=== PATIENT | female | born 1950 | race American Indian/Alaskan Native ===

== ENCOUNTER 2017-03-06 06:45 | Emergency (ER) | payer BC, MEDICARE, OTHER ==
[2017-03-06 07:21] VITALS: TEMP 98.5
[2017-03-06] MEDS ORDERED: Lidocaine 1% Inj (20ml) ONE (07:30)
--- NOTE | 2017-03-06 07:48 | C.PDOC ---
History Of Present Illness 66 y/o female presents to ED with complaints of " feeling something crawling in right ear". Patient states there is a bug in her ear. Patient denies fever, chills, headache, or any other complaints at this time. Time Seen by Provider: 03/06/17 07:21 Chief Complaint (Nursing): ENT Problem History Per: Patient History/Exam Limitations: None Onset/Duration Of Symptoms: Hrs Current Symptoms Are (Timing): Still Present Severity: Mild Past Medical History Reviewed: Historical Data, Nursing Documentation, Vital Signs Vital Signs: Last Vital Signs Temp 98.5 F 03/06/17 07:08 Pulse 56 L 03/06/17 08:54 Resp 17 03/06/17 08:54 BP 117/74 03/06/17 08:54 Pulse Ox 99 03/06/17 08:54 - Medical History PMH: No Chronic Diseases Surgical History: No Surg Hx Denies: Pacemaker - [facility] Procedures DX ULTRASOUND-DIGESTIVE (10/17/11) ESOPHAGOGASTRODUODENOSCOPY [EGD] W/CLOSED BIOPSY (10/17/11) OTH LYSIS-PERITONEAL ADHES (05/04/02) OTH REMOVE BOTH OVARIES/TUBES (05/04/02) TOTAL ABD HYSTERECTOMY (05/04/02) Family History: States: No Known Family Hx - Social History Hx Alcohol Use: No Hx Substance Use: No Review Of Systems Except As Marked, All Systems Reviewed And Found Negative. Constitutional: Negative for: Fever, Chills ENT: Positive for: Ear Pain. Negative for: Ear Discharge Cardiovascular: Negative for: Chest Pain Respiratory: Negative for: Shortness of Breath Skin: Negative for: Rash Neurological: Negative for: Headache Physical Exam - Physical Exam Appears: Non-toxic, No Acute Distress Skin: Warm, Dry Head: Atraumatic, Normacephalic Eye(s): bilateral: Normal Inspection Ear(s): Right: TM Obscured By Wax (small amounts of cerumen, no FB), Bilateral: Normal Oral Mucosa: Moist Neck: Normal ROM, Supple Chest: Symmetrical Cardiovascular: Rhythm Regular Respiratory: Normal Breath Sounds Neurological/Psych: Oriented x3 Gait: Steady ED Course And Treatment O2 Sat by Pulse Oximetry: 96 (RA) Pulse Ox Interpretation: Normal Progress Note: ear flushed with NSS multiple times. no FB noted Reassessment Condition: Improved Medical Decision Making Medical Decision Making: Plan: * Lidocaine added to right ear * Re-evaluate for possible foreign body * Ear flushed, no f.b noted, patient will be discharged home Disposition Counseled Patient/Family Regarding: Diagnosis, Need For Followup - Disposition Referrals: Marcello Hansen MD [Staff Provider] - Disposition: HOME/ ROUTINE Disposition Time: 08:30 Condition: STABLE Additional Instructions: Follow up with ear doctor for further evaluation Instructions: Triethanolamine Polypeptide Oleate (Into the ear), Cerumen Impaction (ED) Forms: [employer] (Latvian) - POA Present On Arrival: None - Clinical Impression Clinical Impression: Ear pain, right - PA / [employer] / Resident Statement MD/DO has reviewed & agrees with the documentation as recorded. - Scribe Statement The provider has reviewed the documentation as recorded by the Karleneibcorinne Barnes All medical record entries made by the Soni were at my direction and personally dictated by me. I have reviewed the chart and agree that the record accurately reflects my personal performance of the history, physical exam, medical decision making, and the department course for this patient. I have also personally directed, reviewed, and agree with the discharge instructions and disposition.
[2017-03-06] MEDS ORDERED: Lidocaine 1% Inj (20ml) INFIL ONE (08:44)
[2017-03-06 08:54] VITALS: BP 117/74; PULSE 56; RESP 17
[2017-03-06 15:44] VITALS: O2SAT 96
== END 2017-03-06 08:54 | disposition home or self-care (01) ==
LOC: C.ER 06:45
DX: H92.01 Otalgia, right ear (principal)

== ENCOUNTER 2018-09-08 14:11 | Emergency (ER) | payer MEDICARE ==
[2018-09-08] MEDS ORDERED: Sodium Chloride 0.9% 1,000 ML IV ONE (17:51)
--- NOTE | 2018-09-08 18:01 | C.PDOC ---
History Of Present Illness 67 y/o female with no pertinent PMHx presents to the ED for evaluation of generalized weakness, intermittent for the past few months. Patient states she has been seen by her doctor, who could not find any etiology for her symptoms. O therwise pt denies any headache, dizziness, recent illness, fever, chills, visual changes, neck pain, chest pain, SOB, palpitation, nausea, vomiting, abd pain, UTI sx. Ambulatory, not in any apparent distress,. <Caterina Calix - Last Filed: 09/08/18 18:58> History Per: Patient History/Exam Limitations: no limitations Onset/Duration Of Symptoms: Intermittent Episodes Current Symptoms Are (Timing): Still Present Seizure Or Post-ictal Symptoms: None Fall Associated With With Symptoms: No <Caterina Calix - Last Filed: 09/08/18 18:58> <Jonatan Tariq - Last Filed: 09/09/18 02:01> Time Seen by Provider: 09/08/18 17:43 Chief Complaint (Nursing): Weakness/Neurological Deficit Past Medical History Reviewed: Historical Data, Nursing Documentation, Vital Signs Vital Signs: Last Vital Signs Temp 98.7 F 09/08/18 14:17 Pulse 73 09/08/18 14:17 Resp 18 09/08/18 14:17 BP 124/76 09/08/18 14:17 Pulse Ox 99 09/08/18 14:17 - Medical History PMH: Arthritis Denies: Asthma, Seizures Surgical History: Denies: Pacemaker - [facility] Procedures DX ULTRASOUND-DIGESTIVE (10/17/11) ESOPHAGOGASTRODUODENOSCOPY [EGD] W/CLOSED BIOPSY (10/17/11) OTH LYSIS-PERITONEAL ADHES (05/04/02) OTH REMOVE BOTH OVARIES/TUBES (05/04/02) TOTAL ABD HYSTERECTOMY (05/04/02) Family History: States: Unknown Family Hx - Social History Hx Alcohol Use: No Hx Substance Use: No <Caterina Calix - Last Filed: 09/08/18 18:58> Vital Signs: Last Vital Signs Temp 98.4 F 09/08/18 19:34 Pulse 53 L 09/08/18 19:34 Resp 16 09/08/18 19:34 BP 117/72 09/08/18 19:34 Pulse Ox 96 09/08/18 19:34 - [facility] Procedures DX ULTRASOUND-DIGESTIVE (10/17/11) ESOPHAGOGASTRODUODENOSCOPY [EGD] W/CLOSED BIOPSY (10/17/11) OTH LYSIS-PERITONEAL ADHES (05/04/02) OTH REMOVE BOTH OVARIES/TUBES (05/04/02) TOTAL ABD HYSTERECTOMY (05/04/02) <Jonatan Tariq - Last Filed: 09/09/18 02:01> Review Of Systems Constitutional: Positive for: Weakness (generalized). Negative for: Fever, Chills Eyes: Negative for: Vision Change Cardiovascular: Negative for: Chest Pain, Palpitations Respiratory: Negative for: Shortness of Breath Gastrointestinal: Negative for: Nausea, Vomiting Skin: Negative for: Rash Neurological: Negative for: Weakness (focal), Numbness, Headache, Dizziness <Caterina Calix - Last Filed: 09/08/18 18:58> Physical Exam - Physical Exam Appears: Well, Non-toxic, No Acute Distress Skin: Normal Color, Warm, No Rash Head: Normacephalic Eye(s): bilateral: PERRL Oral Mucosa: Moist Neck: Trachea Midline, Supple Cardiovascular: Rhythm Regular, No Murmur Respiratory: No Decreased Breath Sounds, No Accessory Muscle Use, No Rhonchi, No Wheezing, Other (Lungs CTA bilaterally) Gastrointestinal/Abdominal: Soft, No Tenderness, No Distention Extremity: Normal ROM, No Pedal Edema, No Calf Tenderness, No Deformity Neurological/Psych: Oriented x3, Normal Speech, Normal Cognition, Normal Cranial Nerves Gait: Steady <Caterina Calix - Last Filed: 09/08/18 18:58> ED Course And Treatment - Laboratory Results Result Diagrams: 09/08/18 15:00 09/08/18 15:00 Lab Interpretation: No Acute Changes O2 Sat by Pulse Oximetry: 99 (RA) Pulse Ox Interpretation: Normal - Radiology CXR: Interpreted by Me, Read By Radiologist CXR Interpretation: Yes: No Acute Disease Progress Note: Labs, EKG, and CXR ordered and reviewed. Patient given IV fluids. <Caterina Calix - Last Filed: 09/08/18 18:58> - Laboratory Results Result Diagrams: 09/08/18 15:00 09/08/18 15:00 Lab Results: PT 12.3 SECONDS (9.7-12.2) H 09/08/18 15:00 INR 1.1 09/08/18 15:00 APTT 33 SECONDS (21-34) 09/08/18 15:00 Troponin I < 0.0120 ng/mL (0.00-0.120) 09/08/18 15:00 Total Bilirubin 0.7 mg/dL (0.2-1.3) 09/08/18 15:00 AST 25 U/L (14-36) 09/08/18 15:00 ALT 6 U/L (9-52) L D 09/08/18 15:00 Alkaline Phosphatase 77 U/L (38-126) 09/08/18 15:00 Total Protein 8.1 g/dL (6.3-8.3) 09/08/18 15:00 Albumin 4.5 g/dL (3.5-5.0) 09/08/18 15:00 Globulin 3.7 gm/dL (2.2-3.9) 09/08/18 15:00 Albumin/Globulin Ratio 1.2 (1.0-2.1) 09/08/18 15:00 Lipase 33 U/L (23-300) 09/08/18 15:00 Urine Color Yellow (YELLOW) 09/08/18 18:14 Urine Clarity Hazy (Clear) 09/08/18 18:14 Urine pH 5.0 (5.0-8.0) 09/08/18 18:14 Ur Specific [place] 1.027 (1.003-1.030) 09/08/18 18:14 Urine Protein Negative mg/dL (NEGATIVE) 09/08/18 18:14 Urine Glucose (UA) Normal mg/dL (Normal) 09/08/18 18:14 Urine Ketones Trace mg/dL (NEGATIVE) 09/08/18 18:14 Urine Blood Negative (NEGATIVE) 09/08/18 18:14 Urine Nitrate Negative (NEGATIVE) 09/08/18 18:14 Urine Bilirubin Negative (NEGATIVE) 09/08/18 18:14 Urine Urobilinogen Normal mg/dL (0.2-1.0) 09/08/18 18:14 Ur Leukocyte Esterase 1+ Dipti/uL (Negative) H 09/08/18 18:14 Urine WBC (Auto) 2 /hpf (0-5) 09/08/18 18:14 Urine Bacteria Rare (<OCC) 09/08/18 18:14 <Jonatan Tariq - Last Filed: 09/09/18 02:01> Medical Decision Making Medical Decision Making: case endorsed pending labs. labs neg. pt well appearing on phone in nad. stable for dc. return precautiosn advised. no c/o of pain <Jonatan Tariq - Last Filed: 09/09/18 02:01> Disposition - Disposition Disposition Time: 19:01 <Caterina Calix - Last Filed: 09/08/18 18:58> <Jonatan Tariq - Last Filed: 09/09/18 02:01> - Disposition [facility]errals[facility] [Outside] Disposition: HOME/ ROUTINE Condition: STABLE Additional Instructions: return to er with worsening symptoms or concerns. 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 - Scribe Statement The provider has reviewed the documentation as recorded by the Scribcorinne Morgan All medical record entries made by the Scribe were at my direction and personally dictated by me. I have reviewed the chart and agree that the record accurately reflects my personal performance of the history, physical exam, medical decision making, and the department course for this patient. I have also personally directed, reviewed, and agree with the discharge instructions and disposition. <Caterina Calix - Last Filed: 09/08/18 18:58> Physician Patient Turnover Patient Signed Over To: Jonatan Tariq Handoff Comments: EKG, blood work, re-eval, dispo <Caterina Calix - Last Filed: 09/08/18 18:58>
[2018-09-08 18:10] LABS: BASO % 0.5 % (0.0-2.0); EOS # 0.1 K/uL (0.0-0.7); EOS % 1.7 % (0.0-4.0); HEMOGLOBIN 13.7 g/dL (11.0-16.0); LYMPH # 2.3 K/uL (1.0-4.3); LYMPH % 32.8 % (20.0-40.0); MEAN CORPUSCULAR HEMOGLOBIN 30.1 pg (27.0-31.0); MEAN CORPUSCULAR HGB CONC 33.2 g/dL (33.0-37.0); MEAN PLATELET VOLUME 9.6 fL (7.2-11.7); MONO # 0.7 K/uL (0.0-0.8); MONO % 9.6 % (0.0-10.0); NEUT # 3.8 K/uL (1.8-7.0); NEUT % 55.4 % (50.0-75.0); NRBC % 0.1 % (0.0-2.0); RBC 4.54 Mil/uL (3.80-5.20); RED CELL DISTRIBUTION WIDTH 13.9 % (11.5-14.5); WHITE BLOOD COUNT 6.9 K/uL (4.8-10.8)
[2018-09-08 18:11] LABS: MEAN CELL VOLUME 90.8 fL (81.0-99.0)
[2018-09-08 18:23] LABS: INR 1.1; PROTHROMBIN TIME 12.3 SECONDS (9.7-12.2)
[2018-09-08 18:26] LABS: URINE BACTERIA RARE (<OCC); URINE BILIRUBIN NEGATIVE (NEGATIVE); URINE BLOOD NEGATIVE (NEGATIVE); URINE CLARITY Hazy (Clear); URINE COLOR Yellow (YELLOW); URINE GLUCOSE (UA) NORMAL (Normal); URINE LEUKOCYTE ESTERASE 1+ Leu/uL (Negative); URINE PROTEIN NEGATIVE (NEGATIVE); URINE UROBILINOGEN NORMAL mg/dL (0.2-1.0)
[2018-09-08 18:31] LABS: ALB/GLOB RATIO 1.2 (1.0-2.1); ALBUMIN 4.5 g/dL (3.5-5.0); ALT/SGPT 6 U/L (9-52); AST/SGOT 25 U/L (14-36); BLOOD UREA NITROGEN 22 mg/dL (7-17); CALCIUM 10.3 mg/dl (8.6-10.4); GFR NON-AFRICAN AMERICAN > 60; LIPASE 33 U/L (23-300)
[2018-09-08 19:34] VITALS: BP 117/72; PULSE 53; RESP 16; TEMP 98.4; O2SAT 96
--- NOTE | 2018-09-09 09:45 | RAD ---
Date of service: 09/08/2018 HISTORY: chest pain COMPARISON: No prior. TECHNIQUE: Chest PA and lateral views FINDINGS: LUNGS: No active pulmonary disease. Small elliptical shaped density right upper lobe overlying the anterior 1st rib. This could represent costal cartilage artifact however possibility of a small a nodule or granuloma not excluded. Follow-up nonemergent CT scan of the chest recommended further evaluation. PLEURA: No significant pleural effusion identified. No pneumothorax apparent. CARDIOVASCULAR: Mild aortic atherosclerotic calcification present. Normal cardiac size. No pulmonary vascular congestion. OSSEOUS STRUCTURES: Mild multilevel degenerative spondylosis of the thoracic spine VISUALIZED UPPER ABDOMEN: Normal. OTHER FINDINGS: None. IMPRESSION: Small elliptical shaped density right upper lobe overlying the anterior 1st rib. This could represent costal cartilage artifact however possibility of a small a nodule or granuloma not excluded. Follow-up nonemergent CT scan of the chest recommended further evaluation. Note this report was placed in PA review folder for follow up.
== END 2018-09-08 20:22 | disposition home or self-care (01) ==
LOC: C.ER 14:11
DX: R53.1 Weakness (principal)
CPT/HCPCS: 71046; 80053; 81001; 82550; 82607; 82948; 83690; 84443; 84484; 85025; 85610; 85730; 96360; 99285; J7030